=== PATIENT | female | born 1960 | race Caucasian/White ===

== ENCOUNTER → 2019-02-25 11:06 | Outpatient (BNVA) | payer BC, SELFPAY | PROVIDERS: Family Provider Family Medicine; PCP Family Medicine; Visit Provider Nurse Practitioner | DX: F33.2 Major depressive disorder, recurrent severe without psychotic features (principal) | CPT/HCPCS: 99213 ==

== ENCOUNTER → 2019-06-03 07:32 | Outpatient (BNVA) | payer BC, SELFPAY | PROVIDERS: Family Provider Family Medicine; PCP Family Medicine; Visit Provider Nurse Practitioner | DX: F33.2 Major depressive disorder, recurrent severe without psychotic features (principal) | CPT/HCPCS: 99213 ==

== ENCOUNTER → 2019-12-04 17:12 | Outpatient (BNVA) | payer BC, SELFPAY | PROVIDERS: Family Provider Family Medicine; PCP Family Medicine; Visit Provider Nurse Practitioner Family | DX: Z20.828 Contact with and (suspected) exposure to other viral communicable diseases (principal) | CPT/HCPCS: 87635 ==

== ENCOUNTER → 2019-12-19 09:16 | Outpatient (BNVA) | payer BC, SELFPAY | PROVIDERS: Family Provider Family Medicine; PCP Family Medicine; Visit Provider Emergency Medicine | DX: Z20.828 Contact with and (suspected) exposure to other viral communicable diseases (principal) | CPT/HCPCS: 87400; 87635 ==

== ENCOUNTER → 2019-12-23 08:08 | Outpatient (BNVA) | payer BC, SELFPAY | PROVIDERS: Family Provider Family Medicine; PCP Family Medicine; Visit Provider Nurse Practitioner | DX: F33.2 Major depressive disorder, recurrent severe without psychotic features (principal) | CPT/HCPCS: 99213 ==

== ENCOUNTER → 2020-05-11 08:31 | Outpatient (BNVA) | payer OTHER, SELFPAY | PROVIDERS: Family Provider Family Medicine; PCP Family Medicine; Visit Provider Family Medicine | DX: E11.9 Type 2 diabetes mellitus without complications (principal); I10 Essential (primary) hypertension; M62.838 Other muscle spasm; Z13.220 Encounter for screening for lipoid disorders; Z13.6 Encounter for screening for cardiovascular disorders; E04.1 Nontoxic single thyroid nodule | CPT/HCPCS: 80053; 80061; 83036; 84439; 84443; 84481 ==

== ENCOUNTER → 2020-06-01 11:53 | Outpatient (BNVA) | payer OTHER, SELFPAY | PROVIDERS: Family Provider Family Medicine; PCP Family Medicine; Visit Provider Nurse Practitioner | DX: F33.2 Major depressive disorder, recurrent severe without psychotic features (principal) | CPT/HCPCS: 99214 ==

== ENCOUNTER → 2020-07-06 11:03 | Outpatient (BNVA) | payer OTHER, SELFPAY | PROVIDERS: Family Provider Family Medicine; PCP Family Medicine; Visit Provider Chiropractor | DX: M79.10 Myalgia, unspecified site (principal); R53.81 Other malaise | CPT/HCPCS: 80053; 80061; 81003; 82306; 82728; 83525; 83540; 83615; 83735; 84100; 84436; 84439; 84443; 84479; 84480; 84481; 84482; 84550; 85025; 85651; 86140; 86376 ==

== ENCOUNTER → 2020-08-04 18:11 | Outpatient (BNVA) | payer OTHER, SELFPAY | PROVIDERS: Family Provider Family Medicine; PCP Family Medicine; Visit Provider Chiropractor | DX: M79.10 Myalgia, unspecified site (principal) | CPT/HCPCS: 81003 ==

== ENCOUNTER → 2020-08-13 18:00 | Outpatient (BNVA) | payer OTHER, SELFPAY | PROVIDERS: Family Provider Family Medicine; PCP Chiropractor; Visit Provider Emergency Medicine | DX: M79.10 Myalgia, unspecified site (principal); Z79.899 Other long term (current) drug therapy | CPT/HCPCS: 81003; 87086 ==

== ENCOUNTER → 2020-09-02 18:00 | Outpatient (BNVA) | payer OTHER, SELFPAY | PROVIDERS: Family Provider Family Medicine; PCP Family Medicine; Visit Provider Chiropractor | DX: M79.10 Myalgia, unspecified site (principal) | CPT/HCPCS: 81003; 87086 ==

== ENCOUNTER → 2022-02-04 12:23 | Outpatient (BNVA) | payer OTHER, SELFPAY | PROVIDERS: Family Provider Family Medicine; PCP Family Medicine; Visit Provider Emergency Medicine | DX: S99.912A Unspecified injury of left ankle, initial encounter (principal); M25.572 Pain in left ankle and joints of left foot; X58.XXXA Exposure to other specified factors, initial encounter | CPT/HCPCS: 73610 ==

== ENCOUNTER → 2023-05-08 08:43 | Outpatient (BNVA) | payer OTHER, SELFPAY | PROVIDERS: Family Provider Family Medicine; PCP Family Medicine; Visit Provider Family Medicine | DX: I10 Essential (primary) hypertension (principal); E03.9 Hypothyroidism, unspecified; M62.838 Other muscle spasm; E11.9 Type 2 diabetes mellitus without complications; E89.0 Postprocedural hypothyroidism; J06.9 Acute upper respiratory infection, unspecified; F33.2 Major depressive disorder, recurrent severe without psychotic features; S32.049S Unspecified fracture of fourth lumbar vertebra, sequela | CPT/HCPCS: 80053; 80061; 83036; 84439; 84443; 84481 ==

== ENCOUNTER 2023-07-31 19:01 | Outpatient (CLI) | payer OTHER, SELFPAY ==
--- NOTE | 2023-07-31 19:32 | XRR_ITS ---
PROCEDURE INFORMATION: Exam: XR Right Tibia and Fibula Exam date and time: 07/31/2023 7:50 PM Age: 63 years old Clinical indication: Pain; Lower leg; Right; Additional info: M79.661 - pain in right lower leg, pain is lateral TECHNIQUE: Imaging protocol: Radiologic exam of the right tibia and fibula. Views: 2 views. COMPARISON: No relevant prior studies available. FINDINGS: Bones/joints: No fracture, periosteal reaction or lytic or blastic osseous abnormality identified. Soft tissues: Normal. XR/XR tibia fibula RT 2V [id number] IMPRESSION: No obvious acute plain radiographic osseous or soft tissue abnormality.
== END 2023-07-31 19:02 | disposition home or self-care (01) ==
PROVIDERS: Family Provider Family Medicine; PCP Family Medicine; Visit Provider Emergency Medicine
DX: M79.661 Pain in right lower leg (principal)
CPT/HCPCS: 73590

== ENCOUNTER → 2024-01-15 09:44 | Outpatient (BNVA) | payer OTHER, SELFPAY | PROVIDERS: Family Provider Family Medicine; PCP Family Medicine; Referring Provider Family Medicine; Visit Provider Family Medicine | DX: E11.9 Type 2 diabetes mellitus without complications; I10 Essential (primary) hypertension; E89.0 Postprocedural hypothyroidism | CPT/HCPCS: 80053; 83036; 84443 ==

== ENCOUNTER → 2024-02-26 13:19 | Outpatient (BNVA) | payer OTHER, SELFPAY | PROVIDERS: Family Provider Family Medicine; PCP Family Medicine; Visit Provider Family Medicine | DX: R30.0 Dysuria (principal); R10.9 Unspecified abdominal pain | CPT/HCPCS: 81000; 87086 ==

== ENCOUNTER → 2025-01-20 09:00 | Outpatient (BNVA) | payer OTHER, SELFPAY | PROVIDERS: Family Provider Family Medicine; PCP Family Medicine; Visit Provider Family Medicine | DX: I10 Essential (primary) hypertension (principal); E11.9 Type 2 diabetes mellitus without complications; E89.0 Postprocedural hypothyroidism | CPT/HCPCS: 80053; 80061; 83036; 84439; 84443; 84481 ==